=== PATIENT | male | born 1970 | race Caucasian/White ===

== ENCOUNTER 2020-11-05 15:25 | Outpatient (REF) | payer OTHER, SELFPAY | END 2020-11-05 15:26 | disposition home or self-care (01) | LOC: HO.LAB 15:25 | PROVIDERS: PCP Physician Assistant Medical; Visit Provider Physician Assistant Medical | DX: Z20.828 Contact with and (suspected) exposure to other viral communicable diseases (principal) | CPT/HCPCS: C9803; U0003 ==